=== PATIENT | female | born 1980 | race Caucasian/White ===

== ENCOUNTER → 2020-11-13 | Outpatient (CLI) | payer OTHER ==
--- NOTE | 2020-11-15 13:01 | ECHOF ---
Referral Reason:R06.09 Other forms of dyspnea MEASUREMENTS -------- HEIGHT: 160.0 cm WEIGHT: 63.5 kg BP: RVIDd: 2.2 cm (< 3.3) IVSd: 0.8 cm (0.6 - 1.1) LVIDd: 4.4 cm (3.9 - 5.3) LVPWd: 1.0 cm (0.6 - 1.1) IVSs: 1.6 cm LVIDs: 2.9 cm LVPWs: 1.2 cm LAESV Index (A-L): 19.17 ml/m Ao Diam: 2.1 cm (2.0 - 3.7) AV Cusp: 1.4 cm (1.5 - 2.6) LA Diam: 3.7 cm (2.7 - 3.8) MV EXCURSION: 15.228 mm (> 18.000) MV EF SLOPE: 154 mm/s (70 - 150) EPSS: 0.2 cm MV E Davis: 1.18 m/s MV DecT: 244 ms MV A Davis: 0.72 m/s MV E/A Ratio: 1.63 RAP: 5.00 mmHg RVSP: 27.14 mmHg FINDINGS -------- Sinus rhythm. This was a technically adequate study. The left ventricular size is normal. Left ventricular wall thickness is normal. Overall left vent ricular systolic function is normal with, an EF between 55 - 60 %. The diastolic filling pattern is normal for the age of the patient {E/E'}. The right ventricle is normal in size. Normal LA size by volume 22+/-6 ml/m2. The right atrial size is normal. Interatrial and interventricular septum intact. The aortic valve is trileaflet and appears structurally normal. There is no evidence of aortic regu rgitation. There is no evidence of aortic stenosis. No mitral regurgitation. Trace tricuspid regurgitation present. There is no evidence of pulmonary hypertension. The right ventricular systolic pressure, as measured by Doppler, is 27.14mmHg. There is no pulmonic regurgitation present. The aortic root size is normal. Normal inferior vena cava with normal inspiratory collapse consistent with estimated right atrial pre ssure of 5 mmHg. There is no pericardial effusion. CONCLUSIONS -------- 1. The left ventricular size is normal. 2. Left ventricular wall thickness is normal. 3. Overall left ventricular systolic function is normal with, an EF between 55 - 60 %. 4. The diastolic filling pattern is normal for the age of the patient {E/E'} 5. Normal LA size by volume 22+/-6 ml/m2. 6. Trace tricuspid regurgitation present. BUTTON MACHINE OPERATOR: Mary Bentley RDCS
== END | disposition home or self-care (01) ==
LOC: MERGE 15:00 → RADECHMAIN 15:06
PROVIDERS: ATTEND Family Medicine
DX: I07.1 Rheumatic tricuspid insufficiency (principal)
CPT/HCPCS: 93306

== ENCOUNTER → 2024-04-11 | Outpatient (CLI) | payer BC ==
--- NOTE | 2024-04-14 03:58 | MM ---
Reason for Exam: Screening (asymptomatic). Baseline mammogram. Patient History: Menarche at age 13. Patient has no children. Last menstrual period: 02/21/2024 Risk Values: Kinjal 5 year model risk: 0.8%. NCI Lifetime model risk: 9.7%. Prior Study Comparison: Patient's first Mammogram. Tissue Density: The breasts are extremely dense, which lowers the sensitivity of mammography. Findings: Analyzed By CAD. The pattern is symmetrical. No suspicious groups of microcalcifications, spiculated or lobular masses, architectural distortion or other secondary signs of malignancy are mammographically apparent. Overall Assessment: Negative, BI-RAD 1 Management: Screening Mammogram of both breasts in 1 year. A negative mammogram report should not preclude additional follow up of suspicious palpable abnormalities. Patient should continue monthly self breast exam. A clinical breast exam by your physician is recommended on an annual basis and results should be correlated with mammographic findings. Note on Kinjal scores and lifetime risk: 1. A Kinjal score greater than 3% is considered moderate risk. If this is the case, consider specialist referral to assess eligibility for a risk reducing agent. 2. If overall lifetime risk for the development of breast cancer is 20% or higher, the patient may qualify for future screening with alternating mammogram and breast MRI. [facility], , 04/14/2024 3:54 AM. Electronically signed and approved by: Wily Uriostegui D.O. Radiologis
== END | disposition home or self-care (01) ==
LOC: RADMAMWWP 06:59
PROVIDERS: ATTEND Family Medicine
DX: Z12.31 Encounter for screening mammogram for malignant neoplasm of breast (principal); R92.333 Mammographic heterogeneous density, bilateral breasts
CPT/HCPCS: 77063; 77067